=== PATIENT | female | born 1980 | race Caucasian/White ===

== ENCOUNTER 2017-03-04 12:49 | Outpatient (CLI) | payer OTHER ==
--- NOTE | 2017-03-04 16:26 | XRAY Report ---
THREE VIEW LEFT HAND: 03/04/2017 CLINICAL INDICATION: Punching injury. FINDINGS: AP, lateral, and oblique views of the left hand demonstrate no evidence of fracture or dis location. The joint spaces are preserved. No radiopaque foreign body is seen in the soft tissues. IMPRESSION: NO EVIDENCE OF FRACTURE. JOB #: [id number] EXT JOB #:[id number]
== END 2017-03-04 12:50 | disposition home or self-care (01) ==
LOC: DI 12:49
PROVIDERS: ATTEND Family Medicine
DX: M79.642 Pain in left hand (principal)